=== PATIENT | male | born 1985 | race Two or more races ===

== ENCOUNTER 2019-12-25 16:13 | Emergency (ER) | payer SELFPAY ==
[~2019-12-25] VITALS: Ht 172.7 cm; Wt 90.0 kg
[2019-12-25] MEDS ORDERED: TETANUS, DIPHTHERIA, PERTUSSIS VAC/PF 0.5ML (>7YR OLD) IM ONE (17:30)
[2019-12-25] MEDS ORDERED: IBUPROFEN 600MG TABLET PO ONE (17:30)
[2019-12-25] MEDS ORDERED: LIDOCAINE 1%/EPI 1:100,000 10 ML VIAL IJ ONE (17:30)
[2019-12-25] MEDS ORDERED: BACITRACIN ZINC OINT UDPKT TOP ONE (17:30)
[2019-12-25 18:21] VITALS: BP 131/81
== END 2019-12-25 18:22 | disposition home or self-care (01) ==
LOC: ER 16:13
DX: S61.512A Laceration without foreign body of left wrist, initial encounter (principal); W27.8XXA Contact with other nonpowered hand tool, initial encounter; Y93.H2 Activity, gardening and landscaping; Y92.89 Other specified places as the place of occurrence of the external cause; Y99.0 Civilian activity done for income or pay; Z23 Encounter for immunization
CPT/HCPCS: 12001; 73110; 90471; 90715; 99283; J3490

== ENCOUNTER 2020-11-19 19:13 | Inpatient (IN) | payer MEDICAID, OTHER ==
[~2020-11-19] VITALS: Ht 170.2 cm; Wt 95.3 kg
[2020-11-19] MEDS ORDERED: KETOROLAC 15MG/ML VIAL IV ONE (23:15)
[2020-11-19 23:38] LABS: CLARITY URINE TURBID (CLEAR); COLOR URINE YELLOW (YELLOW); KETONES URINE 1+ (NEGATIVE); LEUKOCYTE ESTERASE URINE NEGATIVE (NEGATIVE); NITRITE URINE NEGATIVE (NEGATIVE); OCCULT BLOOD URINE NEGATIVE (NEGATIVE); PH URINE >=9.0 (4.5-8.0); PROTEIN URINE TRACE (NEGATIVE); SPECIFIC GRAVITY URINE 1.025 (1.005-1.030)
[2020-11-19 23:46] LABS: CHLORIDE 101 mEq/L (98-107)
[2020-11-19 23:50] LABS: *AMPHETAMINES SCREEN URINE NEGATIVE (NEGATIVE); *BARBITURATES SCREEN URINE NEGATIVE (NEGATIVE); *BENZODIAZEPINES SCREEN URINE NEGATIVE (NEGATIVE); *COCAINE SCREEN URINE NEGATIVE (NEGATIVE); METHADONE URINE SCREEN NEGATIVE (NEGATIVE); OPIATES URINE SCREEN NEGATIVE (NEGATIVE)
[2020-11-19 23:51] LABS: ETHANOL BLOOD < 10 mg/dL
[2020-11-19 23:51] LABS: CANNABINOID URINE SCREEN NEGATIVE (NEGATIVE); PHENCYCLIDINE URINE SCREEN NEGATIVE (NEGATIVE)
[2020-11-20 00:50] LABS: HEMATOCRIT. 46.3 % (42.0-52.0); HEMOGLOBIN. 15.8 g/dL (14.0-18.0); MEAN CORPUSCULAR HEMOGLOBIN 31.2 pg (28.0-32.0); MEAN CORPUSCULAR VOLUME 91.4 fL (80.0-94.0); PLATELET 284 x1000/uL (130-400); RED BLOOD CELL COUNT 5.06 mill/uL (4.7-6.1); RED CELL DISTRIBUTION WIDTH 12.7 % (11.6-14.6)
[2020-11-20] MEDS ORDERED: PIPERACILLIN/TAZOBACTAM 3.375GM/50ML PREMIX IV ONE (01:45)
[2020-11-20] MEDS ORDERED: MORPHINE SULFATE 4 MG/ML CPJ (NOT FOR IM USE) IV ONE (02:45)
[2020-11-20] MEDS: PIPERACILLIN/TAZ 3.375G PREMIX 50 ML IV NR ×2 (03:07→03:37)
[2020-11-20] MEDS ORDERED: IOHEXOL-300 100 ML BOTTLE ONE (06:14)
[2020-11-20] MEDS ORDERED: SKIN ADHESIVE 0.7 GM EA TOP ONE ×2 (07:30→10:33)
[2020-11-20] MEDS ORDERED: BUPIVACAINE HCL/PF 0.5% (5MG/ML) 10ML ONE (07:30)
[2020-11-20] MEDS ORDERED: BACITRACIN 50,000 UNITS/VIAL ONE (07:31)
[2020-11-20] MEDS ORDERED: GLYCOPYRROLATE 0.2 MG/ML 2ML VIAL ONE (10:29)
[2020-11-20] MEDS ORDERED: PROPOFOL 200MG/20ML VIAL IV ONE (10:29)
[2020-11-20] MEDS ORDERED: FENTANYL CITRATE/PF 50MCG/ML 2ML VIAL ONE ×2 (10:29→10:39)
[2020-11-20] MEDS ORDERED: MIDAZOLAM HCL 2 MG/2 ML VIAL ONE (10:29)
[2020-11-20] MEDS ORDERED: ROCURONIUM BROMIDE 10MG/ML VIAL 5ML IV ONE (10:29)
[2020-11-20] MEDS ORDERED: NEOSTIGMINE METHYLSULFATE 1MG/ML 10 ML VIAL ONE (10:29)
[2020-11-20] MEDS ORDERED: ONDANSETRON HCL 4MG/2ML INJ IV PRN ×3 (10:30→11:15)
[2020-11-20] MEDS ORDERED: NALOXONE HCL 0.4MG/ML VIAL IV PRN (10:30)
[2020-11-20] MEDS ORDERED: SUCCINYLCHOLINE CHLORIDE 200MG/10ML IV ONE (10:30)
[2020-11-20] MEDS ORDERED: HYDROCODONE/ACETAMINOPHEN 5/325MG TABLET PO PRN ×4 (10:30→23:00)
[2020-11-20] MEDS ORDERED: METOCLOPRAMIDE HCL 10MG/2ML VIAL ONE (10:30)
[2020-11-20] MEDS ORDERED: SODIUM CHLORIDE 0.9% 10ML VIAL ONE (10:30)
[2020-11-20] MEDS ORDERED: PHENYLEPHRINE HCL 10 MG/ML 1ML (IV VIAL) IV ONE (10:30)
[2020-11-20] MEDS ORDERED: MORPHINE SULFATE 4 MG/ML CPJ (NOT FOR IM USE) IV PRN (10:30)
[2020-11-20] MEDS ORDERED: CEFAZOLIN SODIUM 1000MG/VIAL ONE (10:30)
[2020-11-20] MEDS ORDERED: ONDANSETRON HCL 4MG/2ML INJ ONE (10:30)
[2020-11-20] MEDS ORDERED: BUPIVACAINE HCL 0.5% (5MG/ML) 50ML ONE (10:33)
[2020-11-20] MEDS ORDERED: MEPERIDINE HCL/PF 25MG/ML CPJ IV PRN ×4 (11:15)
[2020-11-20] MEDS ORDERED: SODIUM CHLORIDE 0.9% 1,000 ML IV ONE ×2 (11:15)
[2020-11-20] MEDS ORDERED: HYDROMORPHONE HCL/PF 2MG/ML CPJ IV PRN (11:15)
[2020-11-20] MEDS ORDERED: MORPHINE SULFATE 2 MG/ML CPJ (NOT FOR IM USE) IV PRN ×2 (11:15)
[2020-11-20] MEDS ORDERED: MEPERIDINE HCL/PF 25MG/ML CPJ ONE (11:16)
[2020-11-20 11:39] LABS: PLATELET ESTIMATE NORMAL
[2020-11-20] MEDS ORDERED: DEXT 5%/0.45% NACL KCL 20MEQ/L 1,000 ML IV SCH (12:00)
[2020-11-20] MEDS: HYDROMORPHONE HCL/PF 2MG/ML CPJ IV PRN ×3 (13:20→14:06)
[2020-11-20 15:40] VITALS: BP 122/74
[2020-11-20] MEDS: MORPHINE SULFATE 2 MG/ML CPJ (NOT FOR IM USE) IV PRN (18:39)
[2020-11-20] MEDS: DEXT 5%/0.45% NACL KCL 20MEQ/L 1,000 ML IV SCH (21:57)
[2020-11-21] MEDS: DEXT 5%/0.45% NACL KCL 20MEQ/L 1,000 ML IV SCH (07:02)
[2020-11-21] MEDS: MORPHINE SULFATE 2 MG/ML CPJ (NOT FOR IM USE) IV PRN (12:16)
[2020-11-21 13:14] VITALS: BP 110/70
== END 2020-11-21 16:15 | disposition home or self-care (01) | DRG 234 ==
LOC: ER 19:13 → UNDOADMIN 11-20 03:19 → 8WST 11-20 03:19 → ENRESERV 11-20 07:21 → ER 11-20 11:10 → 6EST 11-20 15:43
PROVIDERS: ADMIT Internal Medicine; ATTEND Internal Medicine
PROC: 0DTJ4ZZ Resection of Appendix, Percutaneous Endoscopic Approach (ICD-10-PCS; principal; 2020-11-20)
DX: K35.80 Unspecified acute appendicitis (principal)
CPT/HCPCS: 36415; 74177; 80053; 80305; 80320; 81003; 85025; 88304; 99285; J0330; J0690; J1170; J1885; J2175; J2250; J2270; J2370; J2405; J2543; J2704; J2710; J2765; J3010; J3490; J7030; Q9967; G0480